=== PATIENT | female | born 1990 | race American Indian/Alaskan Native ===

== ENCOUNTER 2017-05-11 12:28 | Outpatient (CLI) | payer MEDICAID ==
[2017-05-11] MEDS ORDERED: LACTATED RINGERS 500 ML IV ONE (13:24)
[2017-05-11 13:37] VITALS: BP 103/57
[2017-05-11] MEDS ORDERED: TYLENOL PO ONE (14:19)
[2017-05-11 14:26] LABS: Bacteria,Urine 2+ /HPF (Negative); Bilirubin,Urine NEG (Negative); Blood,Urine NEG (Negative); Ketones,Urine NEG (Negative); Leukocyte Esterase,Urine MOD (Negative); Nitrite,Urine POS (Negative); Protein,Urine <15 mg/dL mg/dL (Negative); Urobilinogen,Urine < 2.0 mg/dL (<2.0)
== END 2017-05-11 16:38 | disposition home or self-care (01) ==
LOC: TRG 12:28 → LD 12:30 → TRG 16:38
PROVIDERS: ATTEND Obstetrics & Gynecology
DX: O47.03 False labor before 37 completed weeks of gestation, third trimester (principal); Z3A.29 29 weeks gestation of pregnancy
CPT/HCPCS: 59025; 81001; 96360; J7120

== ENCOUNTER 2017-06-22 19:18 | Inpatient (IN) | payer MEDICAID ==
[2017-06-22] MEDS ORDERED: LACTATED RINGERS 500 ML IV ONE (20:19)
[2017-06-22 20:42] LABS: Bacteria,Urine 2+ /HPF (Negative); Bilirubin,Urine NEG (Negative); Blood,Urine NEG (Negative); Ketones,Urine 20 mg/dL (Negative); Leukocyte Esterase,Urine LG (Negative); Mucus,Urine 3+ /HPF; Nitrite,Urine POS (Negative); Protein,Urine <15 mg/dL mg/dL (Negative); Urobilinogen,Urine < 2.0 mg/dL (<2.0)
[2017-06-22 21:16] LABS: Alanine Aminotransferase 6 units/L (7-56); Albumin 3.3 g/dL (3.9-5); Albumin/Globulin Ratio 0.9 %; Alkaline Phosphatase 110 units/L (35-129); Anion Gap 16 mmol/L; BUN/Creatinine Ratio 13; Blood Urea Nitrogen 5 mg/dL (7-17); Calcium 8.4 mg/dL (8.4-10.2); Carbon Dioxide 24 mmol/L (22-30); Chloride 102.2 mmol/L (98-107); Glucose 109 mg/dL (65-100); Potassium 4.1 mmol/L (3.6-5.0); Sodium 138 mmol/L (137-145); Total Protein 6.8 g/dL (6.3-8.2)
[2017-06-22] MEDS ORDERED: DILAUDID IV ONE (22:31)
[2017-06-22] MEDS: LACTATED RINGERS 1,000 ML IV SCH (23:22)
[2017-06-22] MEDS: ceFAZolin 2 GM in NACL 0.9% 100 ML IV SCH (23:30)
[2017-06-23] MEDS ORDERED: DILAUDID IV ONE (04:44)
[2017-06-23] MEDS: LACTATED RINGERS 1,000 ML IV SCH ×3 (04:52→21:55)
[2017-06-23] MEDS: ceFAZolin 2 GM in NACL 0.9% 100 ML IV SCH ×3 (06:33→21:52)
--- NOTE | 2017-06-23 06:48 | History and Physical Report ---
History of Present Illness Date of examination: 06/23/17 Date of admission: 06/22/17 23:02 Chief complaint: I'm in pain History of present illness: Patient is a 26 year old who presents with complaint of severe back pain for the past 2 days. Patient has been non compliant with treating a UTI diagnosed over 2 weeks ago that was resistant to macrobid. She has now progressed to pyelonephritis and will be admitted for inpatient therapy. Past History Past Medical History: other (lupus) Past Surgical History: other (plastic therapy) Family/Genetic History: diabetes Social history: - Obstetrical History Expected Date of Delivery: 07/17/17 Actual Gestation: 36 Week(s) 4 Day(s) : 4 Para: 1 Number of Living Children: 1 Medications and Allergies Allergies Allergy/AdvReac Type Severity Reaction Status Date / Time No Known Allergies Allergy Unverified 05/11/17 13:24 Home Medications Medication Instructions Recorded Confirmed Last Taken Type NIFEdipine [Procardia] 10 mg PO Q6HR 06/10/17 06/22/17 06/10/17 01:19 History predniSONE 1 mg PO DAILY 06/10/17 06/22/17 2 Days Ago History Keflex 1 tab PO QDAY 06/22/17 06/22/17 06/21/17 History Active Meds: Active Medications Butorphanol Tartrate (Stadol) 2 mg IV Q2H PRN PRN Reason: Labor Pain Cefazolin Sodium 2 gm/ Sodium (Chloride) 100 mls @ 200 mls/hr IV Q8HR PENDING SALE TO [facility] Last Admin: 06/23/17 06:33 Dose: 200 mls/hr Lactated Ringer's (Lactated Ringers) 1,000 mls @ 125 mls/hr IV DIRECT PENDING SALE TO [facility] Last Admin: 06/23/17 04:52 Dose: 125 mls/hr Review of Systems All systems: negative Constitutional: chills, fatigue, malaise Respiratory: shortness of breath Genitourinary: dysuria, pelvic pain, contractions Musculoskeletal: low back pain - Vital Signs Vital signs: Vital Signs Temp Resp 98.7 F 20 06/22/17 19:30 06/22/17 19:30 Temp Pulse Resp BP Pulse Ox 98.0 F 76 16 109/55 96 06/23/17 04:53 06/23/17 04:55 06/23/17 05:28 06/23/17 04:55 06/23/17 02:46 - Physical Exam Breasts: Positive: deferred Cardiovascular: Regular rate, Normal S1, Normal S2 Lungs: Positive: Clear to auscultation, Normal air movement Abdomen: Positive: normal appearance, soft, normal bowel sounds Genitourinary (Female): Positive: normal external genitalia, normal perenium Vulva: both: normal Vagina: Positive: normal moisture Uterus: Positive: normal size - Obstetrical FHR: auscultation normal Cervical Dilatation: 0 Cervical Effacement Percentage: 30 station: -3 Uterine Contraction Pattern: Irregular Uterine Contraction Intensity: Mild Results Result Diagrams: 06/22/17 20:50 Abnormal lab results 06/22/17 06/22/17 Range/Units 20:15 20:50 BUN 5 L (7-17) mg/dL Creatinine 0.4 L (0.7-1.2) mg/dL Glucose 109 H (65-100) mg/dL ALT 6 L (7-56) units/L Albumin 3.3 L (3.9-5) g/dL Urine WBC (Auto) 175.0 H (0.0-6.0) /HPF All other labs normal. Assessment and Plan IUP at 36.4 weeks with pyelonephritis. Admit for IV medications and pain control. Continue monitoring
[2017-06-23 07:09] LABS: Basophils % (Auto) 0.5 % (0.0-1.8); Eosinophils % (Auto) 0.3 % (0.0-4.3); Hemoglobin 9.3 gm/dl (10.1-14.3); Mean Corpuscular HGB Conc 32 % (30-34); Mean Corpuscular Volume 72 fl (79-97); Platelet Count 261 K/mm3 (140-440); Red Blood Count 4.02 M/mm3 (3.65-5.03); Red Cell Distribution Width 15.9 % (13.2-15.2); White Blood Count 12.8 K/mm3 (4.5-11.0)
[2017-06-23 07:14] LABS: Mean Corpuscular Hemoglobin 23 pg (28-32)
[2017-06-23] MEDS: STADOL IV PRN ×3 (07:27→21:52)
[2017-06-24] MEDS: STADOL IV PRN ×2 (06:26→16:06)
[2017-06-24] MEDS: ceFAZolin 2 GM in NACL 0.9% 100 ML IV SCH ×2 (06:31→16:11)
[2017-06-24] MEDS: LACTATED RINGERS 1,000 ML IV SCH (12:46)
--- NOTE | 2017-06-24 16:53 | Progress Note ---
Assessment and Plan IUp at 36 weeks with pyelonephritis and lupus. Patient is feeling better and back pain is lessening. Urine culture grew gram negative rods but final pathogen still pending. Will continue with Ancef 2 grams. Will repeat urinalysis and cbc in the morning. If infection resolved, will consider discharge in the morning Subjective - Subjective Date of service: 06/24/17 Interval history: Patient is a 26 year old who presents with complaint of severe back pain for the past 2 days. Patient has been non compliant with treating a UTI diagnosed over 2 weeks ago that was resistant to macrobid. She has now progressed to pyelonephritis and will be admitted for inpatient therapy. Patient reports: movement normal, other (feeling somewhat better) Objective - Vital Signs Vital Signs: Vital Signs - 12hr 06/24/17 06/24/17 06/24/17 06:26 08:14 08:15 Temperature Pulse Rate 74 82 Respiratory 18 Rate Blood Pressure 116/67 Blood Pressure [Right] O2 Sat by Pulse 98 Oximetry 06/24/17 06/24/17 06/24/17 08:17 08:19 08:24 Temperature 96.8 F L Pulse Rate 86 86 79 Respiratory 18 Rate Blood Pressure Blood Pressure 116/67 [Right] O2 Sat by Pulse 98 98 98 Oximetry 06/24/17 06/24/17 06/24/17 08:29 08:34 12:39 Temperature 97.4 F L Pulse Rate 79 98 H 85 Respiratory 18 Rate Blood Pressure Blood Pressure 115/67 [Right] O2 Sat by Pulse 98 99 Oximetry 06/24/17 06/24/17 06/24/17 12:43 16:25 16:29 Temperature 96.9 F L Pulse Rate 85 73 73 Respiratory 20 Rate Blood Pressure 115/67 108/60 Blood Pressure 108/60 [Right] O2 Sat by Pulse Oximetry - Exam Breasts: deferred Cardiovascular: Regular rate, Normal S1, Normal S2 Lungs: Clear to auscultation, Normal air movement Abdomen: Present: normal appearance Uterus: Present: normal, firm, fundal height above umbilicus Extremities: normal - Labs Labs: Abnormal Labs 06/22/17 06/22/17 06/23/17 20:15 20:50 06:45 WBC 12.8 H Hgb 9.3 L Hct 29.0 L MCV 72 L MCH 23 L RDW 15.9 H Lymph % (Auto) 12.8 L [place] # 0.9 H Seg Neutrophils % 79.6 H Seg Neutrophils # 10.2 H BUN 5 L Creatinine 0.4 L Glucose 109 H ALT 6 L Albumin 3.3 L Urine WBC (Auto) 175.0 H
[2017-06-25] MEDS: STADOL IV PRN ×2 (00:19→07:43)
[2017-06-25] MEDS: LACTATED RINGERS 1,000 ML IV SCH (00:22)
[2017-06-25] MEDS: ceFAZolin 2 GM in NACL 0.9% 100 ML IV SCH ×2 (00:46→07:34)
[2017-06-25 07:38] LABS: Basophils % (Auto) 0.3 % (0.0-1.8); Eosinophils % (Auto) 0.6 % (0.0-4.3); Hemoglobin 7.9 gm/dl (10.1-14.3); Mean Corpuscular HGB Conc 33 % (30-34); Mean Corpuscular Volume 71 fl (79-97); Platelet Count 200 K/mm3 (140-440); Red Blood Count 3.38 M/mm3 (3.65-5.03); Red Cell Distribution Width 15.8 % (13.2-15.2); White Blood Count 8.8 K/mm3 (4.5-11.0)
[2017-06-25 07:53] VITALS: BP 101/55
[2017-06-25 07:54] LABS: Mean Corpuscular Hemoglobin 23 pg (28-32)
--- NOTE | 2017-06-25 13:38 | Progress Note ---
Assessment and Plan A: IUP at 36w6d Pyelonephritis P: Discharge home with follow up next week on Wednesday in office Subjective - Subjective Date of service: 06/25/17 Principal diagnosis: Pyelonephritis, IUP at 36 wks Interval history: Pt reports increased pelvic pressure when standing, but denies any back or flank pain. She would like to go home. Patient reports: movement normal, other (feeling better), no new complaints, no loss of fluid, no vaginal bleeding, no contractions Objective - Vital Signs Vital Signs: Vital Signs - 12hr 06/25/17 06/25/17 06/25/17 07:43 07:51 07:55 Temperature 96.7 F L Pulse Rate 73 73 Respiratory 20 20 Rate Blood Pressure 101/55 Blood Pressure 101/55 [Right] - Exam Breasts: deferred Cardiovascular: Regular rate Lungs: Clear to auscultation Abdomen: Present: soft (gravid, non-tender) Uterus: Present: normal (gravid ) FHR: auscultation normal Uterine Contraction Monitor Mode: External Uterine Contraction Pattern: Absent Uterine Tone Measurement Phase: Resting Extremities: normal - Labs Labs: Abnormal Labs 06/22/17 06/22/17 06/23/17 20:15 20:50 06:45 WBC 12.8 H RBC Hgb 9.3 L Hct 29.0 L MCV 72 L MCH 23 L RDW 15.9 H Lymph % (Auto) 12.8 L [place] % (Auto) [place] # 0.9 H Seg Neutrophils % 79.6 H Seg Neutrophils # 10.2 H BUN 5 L Creatinine 0.4 L Glucose 109 H ALT 6 L Albumin 3.3 L Urine WBC (Auto) 175.0 H 06/25/17 07:00 WBC RBC 3.38 L Hgb 7.9 L Hct 24.0 L MCV 71 L MCH 23 L RDW 15.8 H Lymph % (Auto) [place] % (Auto) 9.6 H [place] # Seg Neutrophils % Seg Neutrophils # BUN Creatinine Glucose ALT Albumin Urine WBC (Auto) Laboratory Results - last 24 hr 06/25/17 07:00 WBC 8.8 RBC 3.38 L Hgb 7.9 L Hct 24.0 L MCV 71 L MCH 23 L MCHC 33 RDW 15.8 H Plt Count 200 Lymph % (Auto) 20.6 [place] % (Auto) 9.6 H Eos % (Auto) 0.6 Baso % (Auto) 0.3 Lymph # 1.8 [place] # 0.8 Eos # 0.1 Baso # 0.0 Seg Neutrophils % 68.9 Seg Neutrophils # 6.1
--- NOTE | 2017-06-25 13:45 | Discharge Summary ---
Providers - Providers Date of Admission: 06/22/17 23:02 Date of discharge: 06/25/17 Attending physician: SHERIF YUAN Primary care physician: SHERIF YUAN Hospitalization Reason for admission: other (Pyelonephritis) Procedure details: IV antibiotics Hospital course: Pt was admitted for pyelonephritis at 36 wks. She was given IV antibiotics and discharged home on HD#2. She will follow up in office on Wednesday with Dr Yuan. Condition at discharge: Stable Disposition: DC-01 TO HOME OR SELFCARE - Discharge Diagnoses (1) Status: Acute Qualifiers: Weeks of gestation: 36 weeks Qualified Code(s): Z3A.36 - 36 weeks gestation of (2) Pyelonephritis Status: Acute Plan - Discharge Medications Prescriptions: Cefixime [Suprax] 200 mg PO BID #28 tab.chew - Provider Discharge Summary Activity: routine Diet: routine Instructions: routine Additional instructions: [] Smoking cessation referral if applicable(refer to patient education folder for contact #) [] Refer to [facility]'s [facility] Booklet Call your doctor immediately for: * Fever > 100.5 * Heavy vaginal bleeding ( >1 pad per hour) * Severe persistent headache * Shortness of breath * Reddened, hot, painful area to leg or breast * Drainage or odor from incision. * Keep incision clean and dry at all times and follow doctor's instructions regarding bathing/showering - Follow up plan Follow up: SHERIF YUAN MD [Primary Care Provider] - 06/29/17
== END 2017-06-25 14:10 | disposition home or self-care (01) | DRG 781 ==
LOC: TRG 19:18 → LD 23:02 → OBSVTOIN 23:02
PROVIDERS: ADMIT Obstetrics & Gynecology; ATTEND Obstetrics & Gynecology
DX: O23.03 Infections of kidney in pregnancy, third trimester (principal); M32.9 Systemic lupus erythematosus, unspecified; O26.893 Other specified pregnancy related conditions, third trimester; Z3A.36 36 weeks gestation of pregnancy; Z83.3 Family history of diabetes mellitus; Z79.899 Other long term (current) drug therapy
CPT/HCPCS: 36415; 80053; 81001; 85025; 87076; 87086; 87186; J0595; J0690; J1170; J7120

== ENCOUNTER 2017-07-05 21:00 | Inpatient (IN) | payer MEDICAID ==
[2017-07-05] MEDS ORDERED: LACTATED RINGERS 1,000 ML IV ONE (22:20)
[2017-07-05] MEDS: PITOCin/NS 30 UNIT/500ML 30 UNITS/500 ML BAG IV SCH (23:50)
[2017-07-05 23:56] LABS: Mean Corpuscular HGB Conc 32 % (30-34); Platelet Count 332 K/mm3 (140-440); Red Cell Distribution Width 15.9 % (13.2-15.2); White Blood Count 14.2 K/mm3 (4.5-11.0)
[2017-07-06 00:08] LABS: Mean Corpuscular Hemoglobin 22 pg (28-32); Mean Corpuscular Volume 69 fl (79-97)
[2017-07-06 00:09] LABS: Hemoglobin 5.9 gm/dl (10.1-14.3)
[2017-07-06 00:10] LABS: Hematocrit 18.5 % (30.3-42.9)
[2017-07-06 00:42] LABS: Hematocrit 28.3 % (30.3-42.9); Hemoglobin 9.1 gm/dl (10.1-14.3); Mean Corpuscular HGB Conc 32 % (30-34); Platelet Count 258 K/mm3 (140-440); Red Blood Count 4.13 M/mm3 (3.65-5.03); Red Cell Distribution Width 16.1 % (13.2-15.2); White Blood Count 11.7 K/mm3 (4.5-11.0)
[2017-07-06 00:47] LABS: Mean Corpuscular Hemoglobin 22 pg (28-32); Mean Corpuscular Volume 69 fl (79-97)
[2017-07-06] MEDS: AMBIEN PO PRN ×2 (01:30→23:32)
[2017-07-06] MEDS ORDERED: LACTATED RINGERS 1,000 ML IV ONE (03:20)
[2017-07-06] MEDS ORDERED: LACTATED RINGERS 1,000 ML ONE (07:33)
[2017-07-06] MEDS: PITOCin/NS 30 UNIT/500ML 30 UNITS/500 ML BAG IV SCH ×12 (07:45→17:43)
[2017-07-06] MEDS ORDERED: XYLOCAINE 2% INFILTRATI ONE (13:06)
[2017-07-06] MEDS ORDERED: MINERAL OIL PO PRN (13:06)
[2017-07-06] MEDS ORDERED: NARCAN 0.4 MG/1 ML IV PRN (13:06)
[2017-07-06] MEDS ORDERED: BRETHINE IVP PRN (13:06)
[2017-07-06] MEDS ORDERED: BRETHINE SUB-Q PRN (13:06)
[2017-07-06] MEDS ORDERED: ZOFRAN IV PRN (13:06)
[2017-07-06] MEDS ORDERED: ePHEDrine SULFATE IV PRN (13:06)
--- NOTE | 2017-07-06 13:10 | History and Physical Report ---
History of Present Illness Date of examination: 07/06/17 Date of admission: 07/05/17 21:00 Chief complaint: I'm here for my induction History of present illness: Patient is a 25 year old who presents for induction of labor at 38 weeks for oligohydramnios. Her course has been complicated by an admission to the hospital for pyelonephritis. Past History Past Medical History: other (lupus) Past Surgical History: no surgical history Family/Genetic History: none Social history: - Obstetrical History Expected Date of Delivery: 07/16/17 Actual Gestation: 38 Week(s) 6 Day(s) : 4 Para: 1 Spontaneous Abortions: 2 Number of Living Children: 1 Medications and Allergies Allergies Allergy/AdvReac Type Severity Reaction Status Date / Time No Known Allergies Allergy Unverified 05/11/17 13:24 Home Medications Medication Instructions Recorded Confirmed Last Taken Type NIFEdipine [Procardia] 10 mg PO Q6HR 06/10/17 07/06/17 06/10/17 01:19 History predniSONE 1 mg PO DAILY 06/10/17 07/06/17 2 Days Ago History ~06/20/17 Keflex 1 tab PO QDAY 06/22/17 07/06/17 06/21/17 History Cefixime [Suprax] 200 mg PO BID #28 tab.chew 06/25/17 07/06/17 07/04/17 21:00 Rx Zoloft 50 mg PO DAILY 07/06/17 07/06/17 07/04/17 21:00 History Active Meds: Active Medications Butorphanol Tartrate (Stadol) 2 mg IV Q2H PRN PRN Reason: Labor Pain Oxytocin/Sodium Chloride (Pitocin/Ns 30 Unit/500ml) 30 units in 500 mls @ 2 mls /hr IV TITR RAFAEL PRN Reason: Protocol Last Admin: 07/06/17 13:04 Dose: 4 ml/hr, 4 mls/hr Zolpidem Tartrate (Ambien) 5 mg PO QHS PRN PRN Reason: Sleep Last Admin: 07/06/17 01:30 Dose: 5 mg Review of Systems All systems: negative Constitutional: weight loss Genitourinary: pelvic pain Integumentary: deferred - Vital Signs Vital signs: Vital Signs Pulse Pulse Ox 123 H 98 07/05/17 21:22 07/05/17 21:22 Temp Pulse Resp BP Pulse Ox 98.9 F 73 18 107/67 96 07/06/17 12:00 07/06/17 12:00 07/06/17 12:00 07/06/17 12:00 07/05/17 23:07 - Physical Exam Breasts: Cardiovascular: Regular rate, Normal S1, Normal S2 Lungs: Positive: Clear to auscultation, Normal air movement Abdomen: Positive: normal appearance, soft, normal bowel sounds. Negative: distention, tenderness Vulva: both: normal Vagina: Positive: normal moisture. Negative: discharge Cervix: Negative: lesion, discharge Uterus: Positive: normal size, normal contour Adnexa: both: normal Anus/Rectum: Positive: normal perianal skin, heme negative. Negative: rectal mass, hemorrhoids Extremities: Deep Tendon Reflex Grade: Normal +2 - Obstetrical FHR: auscultation normal Cervical Dilatation: 0 Cervical Effacement Percentage: 50 station: -3 Uterine Contraction Pattern: Absent Results Result Diagrams: 07/06/17 15:14 Abnormal lab results 07/05/17 07/06/17 Range/Units 23:19 00:10 WBC 14.2 H 11.7 H (4.5-11.0) K/mm3 RBC 2.70 L (3.65-5.03) M/mm3 Hgb 5.9 L* 9.1 L D (10.1-14.3) gm/dl Hct 18.5 L* 28.3 L D (30.3-42.9) % MCV 69 L 69 L (79-97) fl MCH 22 L 22 L (28-32) pg RDW 15.9 H 16.1 H (13.2-15.2) % All other labs normal. Assessment and Plan IUP at 38.4 weeks here for induction due to oligohydramnios. Admit for low dose pitocin. AROM when able. Anticipate . Patient is GBS negative.
[2017-07-06] MEDS ORDERED: PITOCin/NS 30 UNIT/500ML 30 UNITS/500 ML BAG IV SCH (14:00)
[2017-07-06 15:26] LABS: Hematocrit 29.4 % (30.3-42.9); Hemoglobin 9.4 gm/dl (10.1-14.3); Mean Corpuscular HGB Conc 32 % (30-34); Platelet Count 251 K/mm3 (140-440); Red Cell Distribution Width 16.2 % (13.2-15.2); White Blood Count 12.3 K/mm3 (4.5-11.0)
[2017-07-06 15:40] LABS: Mean Corpuscular Hemoglobin 22 pg (28-32); Mean Corpuscular Volume 68 fl (79-97)
[2017-07-06] MEDS ORDERED: CERVIDIL VG ONE (20:20)
[2017-07-06] MEDS: STADOL IV PRN (21:42)
[2017-07-06] MEDS: ZOLOFT PO SCH (21:46)
[2017-07-07] MEDS: STADOL IV PRN ×3 (02:07→19:23)
--- NOTE | 2017-07-07 10:29 | Progress Note ---
Assessment and Plan DAY 2 OF INDUCTION FOR IUGR. PATIENT HAS NOT TAKEN ANY PAIN MEDS. PATIENT HAD CERVIDIL PLACED LAST NIGHT WITH MINIMAL CHANGE PER NURSE. wILL TRY CYTOTEC TODAY. PATIENT ENCOURAGED TO TAKE MEDS FOR PAIN RELIEF AND NOT JUST CONTINUE TO BE IN PAIN. Subjective - Subjective Date of service: 07/07/17 Principal diagnosis: LUPUS, IUGR Patient reports: contractions Objective - Vital Signs Vital Signs: Vital Signs - 12hr 07/06/17 07/06/17 07/07/17 23:27 23:28 03:30 Temperature 99.1 F 99.1 F Pulse Rate 76 Respiratory 16 Rate Blood Pressure 126/74 Blood Pressure 126/74 [Left] 07/07/17 07/07/17 07/07/17 06:14 08:01 08:05 Temperature 99.0 F Pulse Rate 80 85 85 Respiratory 18 Rate Blood Pressure 107/55 104/55 Blood Pressure 107/55 104/55 [Left] - Exam Breasts: deferred Cardiovascular: Regular rate, Normal S1, Normal S2 Lungs: Clear to auscultation, Normal air movement Abdomen: Present: normal appearance, soft, normal bowel sounds Vulva: both: normal Uterus: Present: normal, firm FHR: auscultation normal Uterine Contraction Pattern: Regular Uterine Tone Measurement Phase: Contraction Extremities: normal Deep Tendon Reflex Grade: Normal +2 - Labs Labs: Abnormal Labs 07/05/17 07/06/17 07/06/17 23:19 00:10 15:14 WBC 14.2 H 11.7 H 12.3 H RBC 2.70 L Hgb 5.9 L* 9.1 L D 9.4 L Hct 18.5 L* 28.3 L D 29.4 L MCV 69 L 69 L 68 L MCH 22 L 22 L 22 L RDW 15.9 H 16.1 H 16.2 H Laboratory Results - last 24 hr 07/05/17 07/06/17 23:25 15:14 WBC 12.3 H RBC 4.30 Hgb 9.4 L Hct 29.4 L MCV 68 L MCH 22 L MCHC 32 RDW 16.2 H Plt Count 251 RPR Nonreactive
[2017-07-07] MEDS: CYTOTEC VG PRN ×2 (10:53→15:30)
[2017-07-07] MEDS: LACTATED RINGERS 1,000 ML IV SCH ×3 (19:20→22:32)
[2017-07-07] MEDS ORDERED: ePHEDrine SULFATE IV PRN (21:34)
[2017-07-07] MEDS ORDERED: NARCAN 2 MG/2 ML IV PRN (21:34)
--- NOTE | 2017-07-07 21:34 | Anesthesia Consultation ---
Anesthesia Consult and Med Hx Date of service: 07/07/17 - Airway Anesthetic Teeth Evaluation: Good ROM Head & Neck: Adequate Mental/Hyoid Distance: Adequate Mallampati Class: Class II Intubation Access Assessment: Good - Pulmonary Exam CTA: Yes - Cardiac Exam Cardiac Exam: No Murmur - Pre-Operative Health Status ASA Pre-Surgery Classification: ASA2 Proposed Anesthetic Plan: Epidural - Pulmonary Hx Asthma: No COPD: No Hx Pneumonia: No - Cardiovascular System Hx Hypertension: No - Central Nervous System Hx Seizures: No Hx Psychiatric Problems: Yes (Anxiety taking zoloft) - Endocrine Hx Renal Disease: No Hx End Stage Renal Disease: No Hx Hypothyroidism: No Hx Hyperthyroidism: No - Hematic Hx Anemia: Yes Hx Sickle Cell Disease: No - Other Systems Hx Alcohol Use: No
[2017-07-07] MEDS: PITOCin/NS 30 UNIT/500ML 30 UNITS/500 ML BAG IV SCH (21:39)
[2017-07-07] MEDS ORDERED: fentaNYL-BUPIV 2 MCG/ML-0.125% 200 MCG/100 ML BAG EPIDURAL ONE (21:41)
[2017-07-07] MEDS ORDERED: fentaNYL-BUPIV 2 MCG/ML-0.125% 200 MCG/100 ML BAG EPIDURAL SCH (22:00)
[2017-07-07] MEDS: ZOLOFT PO SCH (22:03)
[2017-07-07] MEDS ORDERED: XYLOCAINE 2% INFILTRATI ONE (23:09)
[2017-07-08] MEDS: PITOCin/NS 20 UNIT/1000ML DRIP 20 UNITS/1,000 ML BAG IV SCH ×2 (01:35→02:35)
--- NOTE | 2017-07-08 02:14 | Procedure Note ---
OB Delivery Note - Delivery Date of Delivery: 07/08/17 Surgeon: SHERIF YUAN Estimated blood loss: 200cc - Vaginal Delivery presentation: vertex Delivery position: OA Intrapartum events: none Delivery induction: cervidil Delivery augmentation: rupture of membranes, pitocin Delivery monitor: external FHT, external uterine Route of delivery: Delivery placenta: spontaneous Delivery cord: 3 umbilical vessels Episiotomy: none Anesthesia: epidural Delivery comments: Viable female delivered over intact perineum after sudden descent of head and rapid progression to 10 cm. placed on maternal abdomen. Cord clamped and cut when done pulsating. apgars 8,9. Weight 7 pounds. Placenta delivered spontaneously and intact with 3vc. Patient tolerated procedure well. No lacerations. Excellent hemostasis. - Infant A at 1 minute: 8 at 5 minutes: 9 Infant Gender: Female
[2017-07-08] MEDS ORDERED: DULCOLAX PR PRN (04:01)
[2017-07-08] MEDS ORDERED: TYLENOL PO PRN (04:01)
[2017-07-08] MEDS ORDERED: SODIUM CHLORIDE FLUSH SYRINGE 10 ML IV PRN (04:01)
[2017-07-08] MEDS ORDERED: ZOFRAN IV PRN (04:01)
[2017-07-08] MEDS ORDERED: BENADRYL PO PRN (04:01)
[2017-07-08] MEDS ORDERED: MILK OF MAGNESIA PO PRN (04:01)
[2017-07-08] MEDS ORDERED: TUCKS PAD TP PRN (04:01)
[2017-07-08] MEDS ORDERED: PHENERGAN PO PRN (04:01)
[2017-07-08] MEDS ORDERED: PHENERGAN PR PRN (04:01)
[2017-07-08] MEDS: MOTRIN PO SCH ×3 (04:37→22:29)
[2017-07-08] MEDS: NORCO 5/325 PO PRN ×2 (08:01→15:14)
[2017-07-08] MEDS ORDERED: COLACE PO SCH (10:00)
[2017-07-08 14:21] LABS: Hematocrit 25.2 % (30.3-42.9)
[2017-07-08] MEDS: PRENATAL VITAMIN PO SCH (15:13)
[2017-07-08] MEDS ORDERED: ZOLOFT PO SCH (23:00)
[2017-07-09] MEDS: MOTRIN PO SCH (06:20)
--- NOTE | 2017-07-09 08:31 | Progress Note ---
Assessment and Plan PPD 1 s/p . Doing well. Patient is . Plan for discharge on today. Subjective - Subjective Date of service: 07/09/17 Principal diagnosis: LUPUS, IUGR Interval history: Patient is a 25 year old who presents for induction of labor at 38 weeks for oligohydramnios. Her course has been complicated by an admission to the hospital for pyelonephritis. Patient reports: appetite normal, voiding normally, pain well controlled, ambulating normally : doing well Objective - Vital Signs Latest vital signs: Vital Signs Temp Pulse Resp BP 07/09/17 01:10 98.4 F 64 18 99/60 07/08/17 16:20 98 F 68 18 112/62 07/08/17 12:30 98.0 F 100 H 18 126/70 07/08/17 09:00 97.7 F 63 17 125/71 Intake and Output 07/08/17 07/09/17 07/09/17 22:59 06:59 14:59 Intake Total 120 360 Balance 120 360 Intake: Oral 120 Intake, Free Water 360 Other: Total, Intake Amount 120 # Voids Void 1 2 - Exam Breasts: Present: deferred Cardiovascular: Present: Regular rate, Normal S1, Normal S2 Lungs: Present: Clear to auscultation, Normal air movement Abdomen: Present: normal appearance, soft, normal bowel sounds Uterus: Present: normal, firm Extremities: Present: normal Deep Tendon Reflex Grade: Normal +2 - Labs Labs: Abnormal lab results 07/08/17 Range/Units 14:05 Hgb 8.0 L (10.1-14.3) gm/dl Hct 25.2 L (30.3-42.9) %
--- NOTE | 2017-07-09 08:35 | Discharge Summary ---
Providers - Providers Date of Admission: 07/05/17 21:00 Date of discharge: 07/09/17 Attending physician: SHERIF YUAN Primary care physician: SHERIF YUAN Hospitalization Reason for admission: induction of labor Delivery: Episiotomy: none Laceration: none complications: none Discharge diagnosis: IUP at term delivered [place] baby: female Hospital course: unremarkable Condition at discharge: Good Disposition: DC-01 TO HOME OR SELFCARE Plan - Discharge Medications Prescriptions: HYDROcodone/APAP 5-325 [[place] 5-325 mg TAB] 2 each PO Q6H PRN #20 tablet PRN Reason: Pain, Moderate (4-6) Ibuprofen [Motrin 600 MG tab] 600 mg PO Q6HR #40 tablet Vit-Fe Fumar-FA [ Vitamin] 1 each PO QDAY #30 tablet - Provider Discharge Summary Activity: routine, no sex for 6 weeks, no heavy lifting 4 weeks, no strenuous exercise Diet: routine Instructions: routine Additional instructions: [] Smoking cessation referral if applicable(refer to patient education folder for contact #) [] Refer to [facility]'s [facility] Booklet Call your doctor immediately for: * Fever > 100.5 * Heavy vaginal bleeding ( >1 pad per hour) * Severe persistent headache * Shortness of breath * Reddened, hot, painful area to leg or breast * Drainage or odor from incision. * Keep incision clean and dry at all times and follow doctor's instructions regarding bathing/showering - Follow up plan Follow up: SHERIF YUAN MD [Primary Care Provider] - 6 Weeks Forms: [facility] Discharge Summary, Discharge Signature Page
[2017-07-09] MEDS: PRENATAL VITAMIN PO SCH (09:28)
--- NOTE | 2017-07-09 11:02 | Progress Note ---
Subjective Date of service: 07/09/17 Principal diagnosis: LUPUS, IUGR Interval history: 1st day after normal vaginal delivery Patient is in the bed, comfortable. Pain is well controlled with pain meds. Ambulated well. No residual neurological deficit. No anesthesia complications. Objective - Constitutional Vitals: Vital Signs - 12hr 07/09/17 01:10 Temperature 98.4 F Pulse Rate 64 Respiratory 18 Rate Blood Pressure 99/60 [Left] - Labs CBC & Chem 7: 07/08/17 14:05 Labs: Abnormal lab results 07/08/17 Range/Units 14:05 Hgb 8.0 L (10.1-14.3) gm/dl Hct 25.2 L (30.3-42.9) %
[2017-07-09 11:31] VITALS: BP 107/56
== END 2017-07-09 10:30 | disposition home or self-care (01) | DRG 775 ==
LOC: LD 21:00 → OB 07-08 04:15
PROVIDERS: ADMIT Obstetrics & Gynecology; ATTEND Obstetrics & Gynecology
PROC: 10E0XZZ Delivery of Products of Conception, External Approach (ICD-10-PCS; principal; 2017-07-08)
PROC: 3E0R3BZ Introduction of Anesthetic Agent into Spinal Canal, Percutaneous Approach (ICD-10-PCS; 2017-07-08)
PROC: 00HU33Z Insertion of Infusion Device into Spinal Canal, Percutaneous Approach (ICD-10-PCS; 2017-07-08)
PROC: 3E0P7VZ Introduction of Hormone into Female Reproductive, Via Natural or Artificial Opening (ICD-10-PCS; 2017-07-08)
DX: O41.03X0 Oligohydramnios, third trimester, not applicable or unspecified (principal); O36.5930 Maternal care for other known or suspected poor fetal growth, third trimester, not applicable or unspecified; O99.12 Other diseases of the blood and blood-forming organs and certain disorders involving the immune mechanism complicating childbirth; D68.62 Lupus anticoagulant syndrome; O99.344 Other mental disorders complicating childbirth; F41.9 Anxiety disorder, unspecified; Z3A.38 38 weeks gestation of pregnancy; Z37.0 Single live birth; Z79.899 Other long term (current) drug therapy
CPT/HCPCS: 36415; 59200; 85014; 85018; 85027; 86592; 86850; 86900; 86901; 99211; G0463; J0595; J2590; J7120

== ENCOUNTER 2019-05-21 16:10 | Outpatient (CLI) | payer MEDICAID ==
[2019-05-21 16:38] VITALS: BP 98/54
[2019-05-21 16:40] LABS: Bacteria,Urine 1+ /HPF (Negative); Bilirubin,Urine NEG (Negative); Blood,Urine NEG (Negative); Color,Urine Yellow (Yellow); Hyaline Casts,Urine 1 /LPF; Protein,Urine <15 mg/dL mg/dL (Negative); Urobilinogen,Urine < 2.0 mg/dL (<2.0); WBC,Urine < 1.0 /HPF (0.0-6.0)
[2019-05-21] MEDS ORDERED: LACTATED RINGERS 1,000 ML IV ONE (17:00)
[2019-05-21] MEDS ORDERED: INDOCIN PO SCH (18:35)
[2019-05-21] MEDS ORDERED: FLEXERIL PO PRN (19:03)
== END 2019-05-21 19:18 | disposition home or self-care (01) ==
LOC: TRG 16:10
PROVIDERS: ATTEND Obstetrics & Gynecology
DX: O23.02 Infections of kidney in pregnancy, second trimester (principal); Z3A.21 21 weeks gestation of pregnancy
CPT/HCPCS: 81001; J7120

== ENCOUNTER 2019-09-03 19:43 | Observation (INO) | payer MEDICAID ==
[2019-09-03] MEDS ORDERED: LACTATED RINGERS 1,000 ML IV SCH ×2 (21:00→23:45)
[2019-09-03] MEDS ORDERED: NIFEdipine*For Tocolysis only* 10 MG CAPSULE PO ONE (21:42)
[2019-09-03 23:25] LABS: Bilirubin,Urine NEG (Negative); Blood,Urine NEG (Negative); Color,Urine Yellow (Yellow); Mucus,Urine 2+ /HPF; Protein,Urine <15 mg/dL mg/dL (Negative); Urobilinogen,Urine < 2.0 mg/dL (<2.0)
[2019-09-03] MEDS ORDERED: OXYTOCIN 20 UNIT/1000ML DRIP 20 UNITS/1,000 ML BAG IV SCH (23:45)
[2019-09-03] MEDS ORDERED: MINERAL OIL 30 ML ORAL LIQD PO PRN (23:52)
[2019-09-03] MEDS ORDERED: ePHEDrine SULFATE 50 MG/1 ML INJ IV PRN (23:52)
[2019-09-03] MEDS ORDERED: TERBUTALINE 1 MG/1 ML INJ SUB-Q PRN (23:52)
[2019-09-03] MEDS ORDERED: TERBUTALINE 1 MG/1 ML INJ IVP PRN (23:52)
[2019-09-03] MEDS ORDERED: LIDOCAINE (2%) 20 MG/1 ML VIAL 20 ML MDV INFILTRATI ONE (23:52)
[2019-09-04 00:05] LABS: Hematocrit 30.7 % (30.3-42.9); Mean Corpuscular HGB Conc 33 % (30-34); Mean Corpuscular Volume 70 fl (79-97); Platelet Count 304 K/mm3 (140-440); Red Blood Count 4.36 M/mm3 (3.65-5.03); Red Cell Distribution Width 15.7 % (13.2-15.2)
[2019-09-04] MEDS ORDERED: MORPHINE 4 MG/1 ML INJ IV ONE (01:15)
[2019-09-04] MEDS ORDERED: ACETAMINOPHEN 325 MG TAB PO ONE (06:16)
[2019-09-04 07:59] VITALS: BP 110/62
[2019-09-04] MEDS ORDERED: ONDANSETRON 4 MG/2 ML INJ IV ONE (08:30)
== END 2019-09-04 08:40 | disposition home or self-care (01) ==
LOC: TRG 19:43 → LD 23:53 → TRG 23:58
PROVIDERS: ADMIT Obstetrics & Gynecology; ATTEND Obstetrics & Gynecology
DX: O62.9 Abnormality of forces of labor, unspecified (principal); Z3A.38 38 weeks gestation of pregnancy
CPT/HCPCS: 36415; 81001; 85027; 86850; 86900; 86901; 96374; 96375; G0378; J2270; J2405; J7120

== ENCOUNTER 2020-01-03 14:00 | Day surgery (SDC) | payer MEDICAID ==
--- NOTE | 2020-01-03 12:25 | Anesthesia Day of Surgery ---
Anesthesia Day of Surgery - Day of Surgery Patient Examined: Yes Patient H&P Reviewed: Yes Patient is NPO: Yes
--- NOTE | 2020-01-03 12:29 | Anesthesia Consultation ---
Anesthesia Consult and Med Hx Date of service: 01/03/20 - Airway Anesthetic Teeth Evaluation: Good ROM Head & Neck: Adequate Mental/Hyoid Distance: Adequate Mallampati Class: Class I Intubation Access Assessment: Good - Pre-Operative Health Status ASA Pre-Surgery Classification: ASA2 Proposed Anesthetic Plan: General - Pulmonary Hx Smoking: No Hx Asthma: No COPD: No Hx Pneumonia: No - Cardiovascular System Hx Hypertension: No - Central Nervous System Hx Neuromuscular Disorder: Yes (Migraines) Hx Seizures: No Hx Psychiatric Problems: No - Endocrine Hx Renal Disease: No Hx End Stage Renal Disease: No Hx Hypothyroidism: No Hx Hyperthyroidism: No - Hematic Hx Anemia: No Hx Sickle Cell Disease: No - Other Systems Hx Alcohol Use: No Hx Substance Use: No Hx Cancer: No - Additional Comments Anesthesia Medical History Comments: Baby [id number] not . Lupus last flare up 4 months ago
--- NOTE | 2020-01-03 13:42 | Short Stay Summary ---
Short Stay Documentation Date of service: 01/03/20 Narrative H&P: Pt here for elective sterilization - History H&P: obtained from office Past Medical History: other (lupus) Past Surgical History: Other (plastic surgery) Social history: - Allergies and Medications Current Medications: Allergies No Known Allergies Allergy (Unverified 05/11/17 13:24) Home Medications Medication Instructions Recorded Confirmed Last Taken Type Norelgestromin/Ethin.estradiol 1 patch TRANSDERMA 1XW 12/27/19 12/27/19 Unknown History [Xulane Patch] Topiramate [Topamax] 25 mg PO DAILY 12/27/19 12/27/19 Unknown History Active Medications Acetaminophen (Tylenol) 1,000 mg PO ONCE NR Stop: 01/03/20 23:00 Cefazolin Sodium (Ancef/Sterile Water 2 Gm/20 Ml) 2 gm IV PREOP NR Celecoxib (Celebrex) 400 mg PO PREOP NR Stop: 01/03/20 23:00 Fentanyl (Sublimaze) 50 mcg IV Q5MIN PRN PRN Reason: Pain , Severe (7-10) Stop: 01/03/20 23:00 Lactated Ringer's (Lactated Ringers) 1,000 mls @ 125 mls/hr IV DIRECT RAFAEL Magnesium Oxide (Mag-Ox) 400 mg PO ONCE NR Stop: 01/03/20 23:00 Midazolam HCl (Versed) 2 mg IV PREOP NR Stop: 01/03/20 23:59 Ondansetron HCl (Zofran) 4 mg IV ONCE PRN PRN Reason: Nausea And Vomiting Stop: 01/03/20 23:00 - Physical exam General appearance: no acute distress Integumentary: no rash, no growths Lungs: Clear to auscultation, Normal air movement Breasts: deferred Heart: Regular rate, Normal S1, Normal S2 Gastrointestinal: normal, normoactive bowel sounds Female Genitourinary: deferred Rectal Exam: deferred Extremities: no ischemia, No edema - Brief post op/procedure progress note Date of procedure: 01/03/20 Pre-op diagnosis: Undesired fertility Post-op diagnosis: same Procedure: Laparoscopic tubal ligation/salpingectomy Anesthesia: GETA Findings: Normal uterus, tubes and ovaries Surgeon: SHERIF YUAN Estimated blood loss: minimal Pathology: list (right and left fallopian tubes) - Hospital course Hospital course: unremarkable - Disposition Condition at discharge: Good Disposition: DC-01 TO HOME OR SELFCARE Short Stay Discharge Plan Activity: advance as tolerated Weight Bearing Status: Weight Bear as Tolerated Diet: regular Wound: open to air Follow up with: SHERIF YUAN MD [Primary Care Provider] - 14 Days Prescriptions: Ibuprofen [Motrin] 800 mg PO Q8HR PRN #40 tablet PRN Reason: Pain, Moderate (4-6) HYDROcodone/APAP 5-325 [[place] 5/325] 2 each PO Q6HR PRN #40 tablet PRN Reason: Pain
[~2020-01-03 14:00] MED LIST: ACETAMINOPHEN 500 MG TAB PO NR; BUPIVACAINE/PF (0.25%) 2.5 MG/ML 30 ML VIAL INFILTRATI ONE; CELECOXIB 200 MG CAP PO NR; HYDROmorphone 1 MG/1 ML INJ ONE; LACTATED RINGERS 1,000 ML IV SCH; LIDOCAINE MPF (2%) 20 MG/1 ML VIAL 5 ML ONE; MAGNESIUM OXIDE 400 MG TAB PO NR; MIDAZOLAM 2 MG/2 ML INJ IV NR; ONDANSETRON 4 MG/2 ML INJ IV PRN; ONDANSETRON 4 MG/2 ML INJ ONE; ROCURONIUM 50 MG/5 ML INJ IV ONE; ceFAZolin/STERILE WATER 2 GM/20 ML SYRINGE IV NR; dexAMETHasone 20 MG/5 ML VIAL ONE; fentaNYL 100 MCG/2 ML INJ IV PRN; propofoL 200 MG/20 ML VIAL IV ONE
[2020-01-03] MEDS ORDERED: BUPIVACAINE/PF (0.25%) 2.5 MG/ML 30 ML VIAL INFILTRATI ONE (14:25)
[2020-01-03] MEDS ORDERED: SODIUM CHLORIDE 0.9% IRR 1,000 ML BOTTLE IR ONE (14:25)
[2020-01-03] MEDS ORDERED: NEOSTIGMINE 10MG/10 ML INJ MDV ONE (14:35)
[2020-01-03] MEDS ORDERED: ONDANSETRON 4 MG/2 ML INJ ONE (14:35)
[2020-01-03] MEDS ORDERED: GLYCOPYRROLATE 0.4 MG/2 ML INJ ONE (14:35)
[2020-01-03] MEDS ORDERED: KETOROLAC 30 MG/1 ML INJ ONE (14:38)
--- NOTE | 2020-01-03 15:01 | Operative Report ---
Operative Report Operative Report: Preoperative diagnosis: Undesired fertility Postoperative diagnosis: Same Procedure: Bilateral laparoscopic salpingectomy Surgeon: Jeri Gallo Anesthesia: General EBL: Minimal IV fluids: 1000 mL Urine output: 150 mL Findings: Normal uterus tubes and ovaries Specimens: Portion of right and left fallopian tube Complications: None The patient was properly identified as herself. She was then taken to the OR with IV running and in place. She was given general anesthesia without difficulty. She was placed in a dorsal lithotomy position. She was then prepped and draped in normal sterile fashion. Attention was turned to the patient's vagina. Her bladder was drained of clear urine with a red rubber c atheter. The speculum was then placed the patient's vagina. The cervix was visualized and grasped with tenaculum. The acorn cannula was then inserted. The surgeon's gloves were changed and attention turned to the patient's abdomen. A small incision was made in the patient's umbilicus incision a 5 mm trocar was placed. The laparoscope confirmed intra-abdominal placement. The abdomen was insufflated with CO2 gas to approximately 25 mmHg. Both fallopian tubes were identified. With direct visualization a second trocar was placed through an incision in the left lower quadrant. Both tubes were found and followed out to the fimbriated ends. Each tube was cauterized at the portion nearest the cornua, then cauterized across the broad ligament until the tube was completely detached. There was excellent hemostasis at the end of this portion of the procedure. Each tube was handed off for pathology. At this point the abdomen was deflated. All instruments were then removed from the abdomen. The incisions were then closed with 4-0 Monocryl. The incisions were also injected with quarter percent Marcaine. The patient tolerated the procedure well she was then awakened and taken recovery in stable condition. Sponge needle and instrument counts were correct 2.
[2020-01-03 16:37] VITALS: BP 129/81
--- NOTE | 2020-01-03 17:24 | Post Anesthesia Evaluation ---
- Post Anesthesia Evaluation Patient Participated: Yes Airway Patent: Yes Stable Respiratory Function: Yes Nausea/Vomiting: No Temp > 96.8F: Yes Pain Manageable: Yes Adequeate Hydration: Yes Anesthesia Complications: No Block Receding Appropriately: Not Applicable Patient on Ventilator: No
== END 2020-01-03 14:01 | disposition home or self-care (01) ==
LOC: OR 14:00
PROVIDERS: ATTEND Obstetrics & Gynecology
DX: Z30.2 Encounter for sterilization (principal); Z79.899 Other long term (current) drug therapy; Z87.442 Personal history of urinary calculi; Z87.440 Personal history of urinary (tract) infections; Z98.890 Other specified postprocedural states
CPT/HCPCS: 58661; 81025; 88302; J0690; J1100; J1170; J1885; J2250; J2405; J2704; J2710; J3010; J7120